=== PATIENT | male | born 1990 | race Hispanic/Latino ===

== ENCOUNTER 2019-10-31 09:50 | Emergency (ER) | payer SELFPAY ==
[2019-10-31] MEDS ORDERED: IBUPROFEN 400 MG TABLET ONE (10:32)
== END 2019-10-31 11:10 | disposition home or self-care (01) ==
LOC: EDH 09:50
DX: M79.671 Pain in right foot (principal); M79.672 Pain in left foot; M79.675 Pain in left toe(s); M79.674 Pain in right toe(s); G89.29 Other chronic pain; I10 Essential (primary) hypertension; Z72.0 Tobacco use
CPT/HCPCS: 99282